=== PATIENT | female | born 1990 | race Caucasian/White ===

== ENCOUNTER 2022-03-25 06:58 | Inpatient (IN) | payer OTHER, MEDICAID ==
[~2022-03-25] VITALS: Ht 165.1 cm; Wt 96.2 kg
[2022-03-25] MEDS ORDERED: CARBOPROST TROMETHAMINE 250 MCG/ML AMPUL IM PRN (08:15)
[2022-03-25] MEDS ORDERED: BUTORPHANOL TARTRATE 2 MG/ML VIAL IV PRN (08:15)
[2022-03-25] MEDS ORDERED: NALOXONE HCL 0.4 MG/ML 1ML VIAL IM PRN (08:15)
[2022-03-25] MEDS ORDERED: METHYLERGONOVINE MALEATE 0.2 MG/ML IM PRN ×2 (08:15→20:30)
[2022-03-25] MEDS ORDERED: LIDOCAINE HCL 1% 20ML VIAL (Pyxis) INJ INFIL SCH (08:15)
[2022-03-25] MEDS: LACTATED RINGERS 1,000 ML IV SCH ×4 (08:51→11:12)
[2022-03-25] MEDS ORDERED: PREN1TAB78 MT (09:17)
[2022-03-25 09:27] LABS: CLARITY URINE CLOUDY (CLEAR); COLOR URINE DARK YELLOW (YELLOW); KETONES URINE 1+ (NEGATIVE); LEUKOCYTE ESTERASE URINE NEGATIVE (NEGATIVE); NITRITE URINE NEGATIVE (NEGATIVE); OCCULT BLOOD URINE 1+ (NEGATIVE); PROTEIN URINE 1+ (NEGATIVE); SPECIFIC GRAVITY URINE 1.023 (1.005-1.030)
[2022-03-25 09:28] LABS: BASOPHILS % 0.4 % (0.0-2.0); EOSINOPHILS % 0.2 % (0.0-5.0); HEMATOCRIT. 38.9 % (36.0-48.0); HEMOGLOBIN. 12.9 g/dL (12.0-16.0); LYMPHOCYTES % 17.2 % (20.0-50.0); MEAN CORPUSCULAR HEMOGLOBIN 28.6 pg (28.0-32.0); MEAN CORPUSCULAR VOLUME 86.3 fL (81.0-99.0); MEAN PLATELET VOLUME 9.4 fl (7.4-10.4); MONOCYTES % 6.4 % (2.0-8.0); NEUTROPHILS % 75.8 % (40.0-76.0); PLATELET 276 x1000/uL (130-400); RED BLOOD CELL COUNT 4.51 mill/uL (4.2-5.4)
[2022-03-25 09:30] LABS: INR 0.9; PARTIAL THROMBOPLASTIN TIME 25.9 sec (23.4-31.0); PROTHROMBIN TIME 9.8 sec (9.6-11.0)
[2022-03-25] MEDS ORDERED: ROPIVACAINE HCL/PF EPIDURAL 200 ML EPI ONE (09:41)
[2022-03-25] MEDS ORDERED: ROPIVACAINE HCL/PF EPIDURAL 200 ML EPI SCH (09:45)
[2022-03-25 10:37] LABS: *AMPHETAMINES SCREEN URINE NEGATIVE (NEGATIVE); *BARBITURATES SCREEN URINE NEGATIVE (NEGATIVE); *BENZODIAZEPINES SCREEN URINE NEGATIVE (NEGATIVE); *COCAINE SCREEN URINE NEGATIVE (NEGATIVE); CANNABINOID URINE SCREEN NEGATIVE (NEGATIVE); METHADONE URINE SCREEN NEGATIVE (NEGATIVE); OPIATES URINE SCREEN NEGATIVE (NEGATIVE); PHENCYCLIDINE URINE SCREEN NEGATIVE (NEGATIVE)
[2022-03-25 10:42] LABS: CHLORIDE 103 mEq/L (98-107)
[2022-03-25 14:37] LABS: HEPATITIS B SURFACE ANTIGEN NEGATIVE
[2022-03-25] MEDS: OXYTOCIN 30 UNITS/500ML NS PMX 500 ML IV SCH ×2 (19:20→20:11)
[2022-03-25] MEDS ORDERED: LANOLIN OINT 7GM TUBE TOP PRN (20:30)
[2022-03-25] MEDS ORDERED: OXYTOCIN 30 UNITS/500ML NS PMX 500 ML IV SCH (20:30)
[2022-03-25] MEDS ORDERED: GLYCERIN/WITCH HAZEL LEAF MEDICATED PAD TOP PRN (20:30)
[2022-03-25] MEDS ORDERED: DIPHENHYDRAMINE 25MG CAPSULE PO PRN (20:30)
[2022-03-25] MEDS ORDERED: RHO(D) IMMUNE GLOBULIN 300 MCG/SYR IM PRN (20:30)
[2022-03-25] MEDS ORDERED: BENZOCAINE/LANOLIN/ALOE VERA SPRAY TOP PRN (20:30)
[2022-03-25] MEDS ORDERED: OXYCODONE HCL/ACETAMINOPHEN 5/325MG TABLET PO PRN (20:30)
[2022-03-25] MEDS ORDERED: HEMORRHOIDAL SUPP PR PRN (20:30)
[2022-03-25] MEDS ORDERED: BISACODYL 10MG SUPP PR PRN (20:30)
[2022-03-25] MEDS ORDERED: IBUPROFEN 400MG TABLET PO PRN (20:30)
[2022-03-25] MEDS ORDERED: BETAMETHASONE ACET/BETAMET 30 MG/5 ML VIAL IM SCH (20:30)
[2022-03-25] MEDS: IBUPROFEN 800MG TABLET PO PRN (20:47)
[2022-03-25] MEDS: DOCUSATE SODIUM 100MG CAPSULE PO SCH (21:00)
[2022-03-25 23:31] VITALS: BP 137/77
[2022-03-26 04:01] VITALS: BP 121/50
[2022-03-26 06:52] LABS: BASOPHILS % 0.4 % (0.0-2.0); HEMATOCRIT. 32.9 % (36.0-48.0); HEMOGLOBIN. 10.9 g/dL (12.0-16.0); LYMPHOCYTES % 13.5 % (20.0-50.0); MEAN CORPUSCULAR HEMOGLOBIN 28.8 pg (28.0-32.0); MEAN CORPUSCULAR VOLUME 86.8 fL (81.0-99.0); MEAN PLATELET VOLUME 8.9 fl (7.4-10.4); NEUTROPHILS % 81.1 % (40.0-76.0); PLATELET 246 x1000/uL (130-400); RED BLOOD CELL COUNT 3.79 mill/uL (4.2-5.4); RED CELL DISTRIBUTION WIDTH 17.9 % (11.6-14.6)
[2022-03-26 08:00] VITALS: BP 126/77
[2022-03-26] MEDS: IBUPROFEN 800MG TABLET PO PRN ×2 (08:10→17:12)
[2022-03-26] MEDS: PRENATAL VIT/FE FUMARATE/FA TABLET PO SCH (08:10)
[2022-03-26] MEDS: FERROUS SULFATE 325MG TABLET PO SCH ×3 (08:10→17:12)
[2022-03-26] MEDS: SIMETHICONE 80MG TABLET CHEW PO SCH ×4 (08:10→21:58)
[2022-03-26 15:53] VITALS: BP 122/71
[2022-03-26 20:00] VITALS: BP 141/82
[2022-03-26] MEDS: DOCUSATE SODIUM 100MG CAPSULE PO SCH (21:59)
[2022-03-27] MEDS: IBUPROFEN 800MG TABLET PO PRN ×2 (01:19→10:44)
[2022-03-27 04:12] VITALS: BP 144/72
[2022-03-27] MEDS ORDERED: IBUP-2030 PO (06:54)
[2022-03-27] MEDS: FERROUS SULFATE 325MG TABLET PO SCH (07:30)
[2022-03-27 07:45] VITALS: BP 121/69
[2022-03-27] MEDS: SIMETHICONE 80MG TABLET CHEW PO SCH (08:00)
[2022-03-27] MEDS: PRENATAL VIT/FE FUMARATE/FA TABLET PO SCH (08:22)
== END 2022-03-27 12:42 | disposition home or self-care (01) | DRG 807 ==
LOC: 8 EST LDRP 06:58 → OBSVTOIN 07:45 → 8 EST LDRP 11:00 → 8EST 22:36
PROVIDERS: ADMIT Obstetrics & Gynecology; ATTEND Obstetrics & Gynecology
PROC: 10E0XZZ Delivery of Products of Conception, External Approach (ICD-10-PCS; principal; 2022-03-25)
PROC: 0W8NXZZ Division of Female Perineum, External Approach (ICD-10-PCS; 2022-03-25)
PROC: 3E0R3BZ Introduction of Anesthetic Agent into Spinal Canal, Percutaneous Approach (ICD-10-PCS; 2022-03-25)
PROC: 00HU33Z Insertion of Infusion Device into Spinal Canal, Percutaneous Approach (ICD-10-PCS; 2022-03-25)
DX: O99.52 Diseases of the respiratory system complicating childbirth (principal); Z37.0 Single live birth; O99.214 Obesity complicating childbirth; O99.324 Drug use complicating childbirth; F12.10 Cannabis abuse, uncomplicated; Z20.822 Contact with and (suspected) exposure to COVID-19; J45.909 Unspecified asthma, uncomplicated; O90.81 Anemia of the puerperium; D64.9 Anemia, unspecified; Z3A.38 38 weeks gestation of pregnancy
CPT/HCPCS: 36415; 80053; 80305; 81003; 85025; 86592; 86703; 86762; 86850; 86900; 87340; 87426; 99281; G0378; J2795; J3490; J7120; A4315; J2590